=== PATIENT | male | born 1955 | race Two or more races ===

== ENCOUNTER 2018-04-23 13:42 | Emergency (ER) | payer SELFPAY ==
[~2018-04-23] VITALS: Ht 162.6 cm; Wt 72.6 kg
--- NOTE | 2018-04-23 15:57 | NUR ---
Patient eloped from facility. ER MD notified.
[2018-04-23 15:58] VITALS: BP 118/69
== END 2018-04-23 15:59 | disposition left against medical advice (07) ==
LOC: ER 13:45 → EDBD 13:45 → ER 15:59
DX: Z53.21 Procedure and treatment not carried out due to patient leaving prior to being seen by health care provider (principal)
CPT/HCPCS: A4606; Z7610